=== PATIENT | male | born 1995 | race Caucasian/White ===

== ENCOUNTER 2023-11-15 20:40 | Emergency (ER) | payer OTHER, BC ==
[2023-11-15 20:51] VITALS: BP 145/60; PULSE 65; RESP 18; TEMP 98.6; BMI 24.6
[2023-11-15] MEDS: IBUPROFEN 400 MG TABLET (FP) PO ONE (21:06)
[2023-11-15] MEDS ORDERED: IBUPROFEN 400 MG TABLET (FP) PO ONE (21:07)
== END 2023-11-15 22:02 | disposition home or self-care (01) ==
LOC: JERFT 20:40
DX: S76.211A Strain of adductor muscle, fascia and tendon of right thigh, initial encounter (principal); X50.1XXA Overexertion from prolonged static or awkward postures, initial encounter
CPT/HCPCS: 99283-25